=== PATIENT | male | born 1960 | race Caucasian/White ===

== ENCOUNTER 2016-11-26 04:59 | Inpatient (IN) | payer OTHER ==
[~2016-11-26] VITALS: Ht 177.8 cm; Wt 96.1 kg
[2016-11-26 05:40] LABS: CHLORIDE 107 mEq/L (99-109); POTASSIUM 3.9 mEq/L (3.7-5.4); SODIUM 137 mEq/L (136-147)
[2016-11-26 05:42] LABS: GLUCOSE 146 mg/dL (70-99)
[2016-11-26 05:44] LABS: ANION GAP 10 MEQ/L (2-14)
[2016-11-26 05:46] LABS: GFR ESTIMATE (CALCULATED) > 59 mL/min/
[2016-11-26 05:47] LABS: UREA NITROGEN (BUN) 40 mg/dL (9-23)
[2016-11-26 05:52] LABS: HEMATOCRIT 34.9 % (38.0-50.0); MCH 31.4 PG (29.0-34.0); MCHC 36.4 G/DL (30.0-36.0); MCV 86.2 FL (86-99); MEAN PLAT.VOLUME 10.2 uM^3 (9.0-12.4); PLATELET COUNT 302 K/uL (156-360); RBC DIS.WIDTH-CV 11.3 % (11.8-14.6); RED BLOOD COUNT 4.05 M/uL (4.00-5.50); WHITE BLOOD COUNT 9.5 K/uL (4.1-10.2)
[2016-11-26 06:05] LABS: INTER. NORMALIZED RATIO 1.1; PROTHROMBIN TIME 12.1 SEC (10.2-12.9)
[2016-11-26 06:08] LABS: PTT 24.2 SEC (25-37)
[2016-11-26] MEDS ORDERED: PRAVACHOL20 MG PO (08:51)
[2016-11-26] MEDS ORDERED: ASPIRIN325 MG PO (08:51)
[2016-11-26 11:45] VITALS: BP 121/71
[2016-11-26 14:46] VITALS: BP 114/77
[2016-11-26 15:15] LABS: HEMATOCRIT 29.8 % (38.0-50.0); MCV 89.2 FL (86-99)
[2016-11-26 17:03] LABS: HEMATOCRIT 28.9 % (38.0-50.0); MCV 89.2 FL (86-99)
[2016-11-26 19:01] VITALS: BP 104/68
[2016-11-26 21:31] LABS: HEMATOCRIT 29.2 % (38.0-50.0); MCV 90.1 FL (86-99)
[2016-11-26 23:27] VITALS: BP 113/69
[2016-11-27] VITALS (7 sets, daily range): BP systolic 104–124; BP diastolic 60–76
[2016-11-27 01:55] LABS: HEMATOCRIT 27.1 % (38.0-50.0); MCV 89.1 FL (86-99)
[2016-11-27 04:46] LABS: MCH 31.1 PG (29.0-34.0); MCHC 34.8 G/DL (30.0-36.0); MCV 89.4 FL (86-99); MEAN PLAT.VOLUME 10.1 uM^3 (9.0-12.4); PLATELET COUNT 214 K/uL (156-360); RBC DIS.WIDTH-CV 11.9 % (11.8-14.6); RBC DIS.WIDTH-SD 38.1 % (39-53); WHITE BLOOD COUNT 5.5 K/uL (4.1-10.2)
[2016-11-27 04:55] LABS: RED BLOOD COUNT 3.02 M/uL (4.00-5.50)
[2016-11-27 05:04] LABS: CHLORIDE 110 mEq/L (99-109); POTASSIUM 4.5 mEq/L (3.7-5.4); SODIUM 140 mEq/L (136-147)
[2016-11-27 05:05] LABS: GLUCOSE 119 mg/dL (70-99)
[2016-11-27 05:07] LABS: ANION GAP 8 MEQ/L (2-14)
[2016-11-27 05:09] LABS: GFR ESTIMATE (CALCULATED) > 59 mL/min/
[2016-11-27 05:10] LABS: UREA NITROGEN (BUN) 24 mg/dL (9-23)
[2016-11-27 09:27] LABS: HEMATOCRIT 27.4 % (38.0-50.0)
[2016-11-27 16:17] LABS: HEMATOCRIT 26.7 % (38.0-50.0); MCV 90.8 FL (86-99)
[2016-11-27 21:37] LABS: HEMATOCRIT 25.6 % (38.0-50.0); MCV 89.5 FL (86-99)
[2016-11-28 03:23] VITALS: BP 122/69
[2016-11-28 07:35] VITALS: BP 124/78
[2016-11-28 10:58] LABS: HEMATOCRIT 28.6 % (38.0-50.0); MCH 31.2 PG (29.0-34.0); MCHC 34.6 G/DL (30.0-36.0); MCV 90.2 FL (86-99); MEAN PLAT.VOLUME 9.5 uM^3 (9.0-12.4); PLATELET COUNT 255 K/uL (156-360); RBC DIS.WIDTH-CV 11.9 % (11.8-14.6); RBC DIS.WIDTH-SD 38.5 % (39-53); RED BLOOD COUNT 3.17 M/uL (4.00-5.50); WHITE BLOOD COUNT 4.9 K/uL (4.1-10.2)
[2016-11-28 11:11] LABS: ALKALINE PHOSPHATASE 50 IU/L (3-129); ANION GAP 4 MEQ/L (2-14); CHLORIDE 109 MEQ/L (99-109); GFR ESTIMATE (CALCULATED) > 59 mL/min/; POTASSIUM 3.8 MEQ/L (3.7-5.4); SAMPLE HEMOLYSIS CHECK 0; SAMPLE ICTERIC CHECK 0; SAMPLE LIPEMIA CHECK 0; SODIUM 141 MEQ/L (136-147); TOTAL BILIRUBIN 0.4 MG/DL (0.0-1.0); UREA NITROGEN (BUN) 11 mg/dL (9-23)
[2016-11-28 11:15] LABS: GLUCOSE 87 mg/dL (70-99)
[2016-11-28 11:21] VITALS: BP 124/74
[2016-11-28] MEDS ORDERED: SUCRALFATE1 GM/10 ML PO (12:17)
[2016-11-28] MEDS ORDERED: PROTONIX40 MG PO (12:17)
== END 2016-11-28 13:10 | disposition home or self-care (01) | DRG 379 ==
LOC: EME 04:59 → 5EAST 08:04 → EDOF 08:04 → 4EAST 08:04 → ENRESERV 08:05 → 5EAST 11:12 → ENRESERV 13:45 → 4EAST 14:26 → ENPENDDIS 11-28 → 4EAST 11-28 13:10
PROVIDERS: Emergency Medicine; Hospitalist; Internal Medicine; Internal Medicine Gastroenterology
PROC: 0DJ08ZZ Inspection of Upper Intestinal Tract, Via Natural or Artificial Opening Endoscopic (ICD-10-PCS; principal; 2016-11-26)
PROC: 0DJ08ZZ Inspection of Upper Intestinal Tract, Via Natural or Artificial Opening Endoscopic (ICD-10-PCS; 2016-11-27)
DX: K25.4 Chronic or unspecified gastric ulcer with hemorrhage (principal); E78.2 Mixed hyperlipidemia; K22.70 Barrett's esophagus without dysplasia; K29.80 Duodenitis without bleeding; K44.9 Diaphragmatic hernia without obstruction or gangrene; Z79.82 Long term (current) use of aspirin; Z87.19 Personal history of other diseases of the digestive system
CPT/HCPCS: 74177; 80048; 80053; 80069; 85014; 85018; 85027; 85610; 85730; 86850; 86900; 86901; 86920; 93005; 99281; 99284; C9113; J2250; J2354; J2765; J3010; J7030; J7050